=== PATIENT | male | born 1960 | race Caucasian/White ===

== ENCOUNTER → 2022-03-17 15:34 | Outpatient (CLI) | payer BC, SELFPAY ==
--- NOTE | ~2022-03-17 | US_ITS ---
EXAMINATION: US carotid duplex BI DATE: 03/17/2022 15:58 INDICATION: Vertigo TECHNIQUE: Grayscale, color Doppler, and pulsed Doppler images of the cervical carotid arteries were obtained. The degree of vessel stenosis is placed in one of the following categories: normal, <50%, 5 0-69%, >=70% but less than near-occlusion, near-occlusion, or total occlusion. Note that percent sten osis relative to normal distal artery lumen diameter is indirectly measured from velocity measurement s as described by Lee, et al. Radiology 2003; 229:340-346. Notes: Normal: Peak systolic velocity <125 centimeters/sec and no plaque <50%. Peak systolic velocity <125 ( EDV <40; ICA/CCA PSV ratio <2.0; used these factors only a tandem lesions or low cardiac output or co ntralateral disease) 50-69 %: PSV 125-230 (EDV 40-100; ratio 2-4) >= 70% but less than near occlusion: PSV greater than 230 (EDV > 100; ratio> 4.0) Near Occlusion: PSV that is variable; markedly narrowed lumen Occlusion: Absent flow on color/spectral Doppler and no lumen on bourgeois scale. COMPARISON: None. FINDINGS: RIGHT: The right common carotid artery (CCA) peak systolic velocity (PSV) is 77 cm/s. The right internal car otid artery (ICA) PSV is 85 cm/s. The right ICA end-diastolic velocity (EDV) is 27 cm/s. The right IC A/CCA PSV ratio is 1.5. The external carotid artery (ECA) PSV is 69 cm/s. There is antegrade flow in the right vertebral artery. LEFT: The left CCA PSV is 97 cm/s. The left ICA PSV is 66 cm/s. The left ICA EDV is 21 cm/s. The left ICA/C CA PSV ratio is 1. The ECA PSV is 98 cm/s. There is antegrade flow in the left vertebral artery. IMPRESSION: 1. Less than 50% stenosis in the right internal carotid artery by sonographic criteria. 2. Less than 50% stenosis in the left internal carotid artery by sonographic criteria. Reviewed, dictated and finalized at location A. IMPRESSION: 1. Less than 50% stenosis in the right internal carotid artery by sonographic leydi alexis. 2. Less than 50% stenosis in the left internal carotid artery by sonographic aline [place].
== END ==
PROVIDERS: PCP Family Medicine Adolescent Medicine; Visit Provider Physician Assistant
DX: R29.898 Other symptoms and signs involving the musculoskeletal system (principal); I65.23 Occlusion and stenosis of bilateral carotid arteries
CPT/HCPCS: 93880

== ENCOUNTER 2022-06-03 18:52 | Emergency (ER) | payer BC, SELFPAY ==
--- NOTE | ~2022-06-03 | XR_ITS ---
XR hip RT 2V w AP pelvis 06/03/2022 19:33 INDICATION: Right hip pain PROCEDURE: 4 views right hip including AP pelvis COMPARISON: 10/25/2018 FINDINGS: Fracture, dislocation or subluxation is not identified. The soft tissues appear within norm al limits. No foreign bodies are identified. IMPRESSION: 1: NO ACUTE BONE OR JOINT ABNORMALITY IDENTIFIED. Reviewed, dictated and finalized at location A.
[2022-06-03 18:54] VITALS: BP 183/97; PULSE 78; RESP 20; TEMP 36.3; O2SAT 99
--- NOTE | 2022-06-03 19:55 | ED.EXTPRO ---
HPI - Extremity Problem General Chief complaint: Extremity Problem,Nontraumatic Stated complaint: hip pain Time Seen by Provider: 06/03/22 19:16 Source: patient Mode of arrival: ambulatory Limitations: no limitations History of Present Illness HPI Narrative: 62-year-old with a history of hypertension, diabetes here with complaints of right hip pain which has been ongoing for last several months. Patient states that he has seen his chiropractor had lidocaine and also injected into the hip this morning with no relief. Patient states that he is unable to get comfortable. He is on gabapentin. He denies any fall. No history of fever or chills Complaint: joint paint Onset (ago): unknown Pain Consistency: constant Location: right Quality: aching Radiation: none Relieving factors: nothing Exacerbating factors: nothing Associated symptoms: denies other symptoms Related Data Allergies Allergy/AdvReac Type Severity Reaction Status Date / Time No Known Allergies Allergy Verified 06/03/22 19:15 Review of Systems Review of Systems: All systems reviewed & are unremarkable except as noted in HPI and below Constitutional: Constitutional: Reports no additional constitutional complaints Eyes: Eyes: Reports no additional eye complaints ENT: Reports system reviewed and no additional complaints, except as documented Cardiovascular: Cardiovascular: Reports no additional cardiovascular complaints Respiratory: Respiratory: Reports no additional respiratory complaints Gastrointestinal: Gastrointestinal: Reports no additional gastrointestinal complaints Musculoskeletal: Musculoskeletal: Reports as per HPI Integumentary/Breasts: Skin/Breast: Reports system reviewed and no additional complaints, except as docu Neurologic: Reports system reviewed and no additional complaints, except as documented Psychiatric: Psychiatric: Reports no additional psychiatric complaints PMFSH Past Medical History Medical History Diabetes type 2, controlled Eczema Hypertension Pure hypercholesterolemia, unspecified Surgical History Surgical History Hx of hernia repair Family History Family History Mother Asthma Father Family history of musculoskeletal disease Grandparent Diabetes mellitus Social History Social History Smoking status: Former smoker Second hand tobacco smoke exposure: No Alcohol intake: never Alcohol use details: Quit 18 years ago Substance use: never Substance use type: does not use Additional occupation/education comments: [employer] work Gender identity (if verbalized by the patient): Male Spiritual care concerns: No Agree to blood products: Yes Exam Narrative: GENERAL: Well-appearing, well-nourished, and in no acute distress. HEAD: Normocephalic, atraumatic. EYES: PERRLA and EOMI. NECK: Supple. CHEST: Clear to auscultation. No respiratory distress. HEART: Regular rate and rhythm. No murmur heard. Normal peripheral pulses. ABDOMEN: Soft, nontender, nondistended, normal active bowel sounds. EXTREMITIES: Normal range of motion. No edema. SKIN: Warm, dry, no rash. NEURO: No focal deficits. Alert and oriented x3. PSYCH: Normal mood and affect. Course Course Emergency Course: Notified patient about his x-ray findings. Advised him to continue gabapentin. Recommended stretch exercises. Take muscle relaxers as prescribed. Vital Signs Vital signs: Vital Signs Temperature 36.3 C L 06/03/22 18:54 Pulse Rate 78 06/03/22 18:54 Respiratory Rate 20 06/03/22 18:54 Blood Pressure 183/97 H 06/03/22 18:54 Pulse Oximetry 99 06/03/22 18:54 Temperature 36.3 C L 06/03/22 18:54 Pulse Rate 78 06/03/22 18:54 Respiratory Rate 20 06/03/22 18:54 Blood Pressure 183/97 H
[2022-06-03] MEDS: methocarbamoL 500 MG TABLET PO (20:18)
== END 2022-06-03 20:20 | disposition home or self-care (01) ==
PROVIDERS: Emergency Provider Family Medicine; PCP Family Medicine Adolescent Medicine
DX: G57.01 Lesion of sciatic nerve, right lower limb (principal); I10 Essential (primary) hypertension; E11.9 Type 2 diabetes mellitus without complications; E78.00 Pure hypercholesterolemia, unspecified; Z87.891 Personal history of nicotine dependence; Z79.84 Long term (current) use of oral hypoglycemic drugs
CPT/HCPCS: 73502; 99283; A9270

== ENCOUNTER 2022-09-04 07:05 | Outpatient (CLI) | payer BC, SELFPAY ==
--- NOTE | ~2022-09-04 | MR_ITS ---
EXAMINATION: MR hip RT wo con DATE: 09/04/2022 08:00 INDICATION: TECHNIQUE: Magnetic resonance imaging (MRI) of the right hip was performed without intravenous contra st. Sequences included coronal T1, T2, and fat saturated proton density, axial T1 and fat saturated p roton density, small [id number] coronal T2 and PD fat-saturated sequences and axial and sagittal f at-saturated PD sequences, with radial T1 fast GRE reconstructions. COMPARISON: X-ray hip 06/03/2022 FINDINGS: Bones/cartilage: No suspicious focal or diffuse marrow signal. Mild diffuse thinning of cartilage in the bilateral hip joints. Degenerative changes in the lumbar spine. Mild marrow heterogeneity which may represent fredy nversion. Labrum: Degenerative changes in the bilateral colby. Tiny linear signal abnormality in the anterior aspect of the right labrum (series 9 image 04/16). Fluid: No significant joint effusion. No bursal collection. No cystic soft tissue mass. Soft tissues: Unremarkable. IMPRESSION: 1. Tiny, focal anterior labral tear in the right hip. 2. Mild bilateral hip osteoarthritis. Reviewed, dictated and finalized at location K. ING TECHNICIAN
== END 2022-09-04 07:06 | disposition home or self-care (01) ==
PROVIDERS: PCP Family Medicine Adolescent Medicine; Visit Provider Physician Assistant
DX: M16.0 Bilateral primary osteoarthritis of hip (principal)
CPT/HCPCS: 73721